=== PATIENT | female | born 1960 | race Caucasian/White ===

== ENCOUNTER 2019-05-01 15:03 | Emergency (ER) | payer OTHER ==
[~2019-05-01] VITALS: Ht 152.4 cm; Wt 61.7 kg
[2019-05-01 15:09] VITALS: BP 115/62; Ht 152.4 cm; Wt 61.7 kg
== END 2019-05-01 16:06 | disposition home or self-care (01) ==
LOC: ED 15:03
DX: M70.21 Olecranon bursitis, right elbow (principal); G89.29 Other chronic pain; F17.210 Nicotine dependence, cigarettes, uncomplicated; I10 Essential (primary) hypertension; Z98.890 Other specified postprocedural states; Y93.89 Activity, other specified
CPT/HCPCS: 99406

== ENCOUNTER 2019-06-01 11:31 | Emergency (ER) | payer OTHER | END 2019-06-01 12:33 | disposition left against medical advice (07) | LOC: ED 11:31 | DX: Z02.89 Encounter for other administrative examinations (principal) ==

== ENCOUNTER 2019-06-06 13:21 | Emergency (ER) | payer OTHER ==
[~2019-06-06] VITALS: Ht 167.6 cm; Wt 61.7 kg
[2019-06-06 13:28] VITALS: Ht 167.6 cm; Wt 61.7 kg
[2019-06-06 16:19] VITALS: BP 115/71
== END 2019-06-06 16:19 | disposition home or self-care (01) ==
LOC: ED 13:21
DX: J40 Bronchitis, not specified as acute or chronic (principal); I10 Essential (primary) hypertension; Z98.890 Other specified postprocedural states
CPT/HCPCS: J7512